=== PATIENT | female | born 1995 | race Caucasian/White ===

== ENCOUNTER → 2016-07-13 | Outpatient (CLI) | payer OTHER ==
[~2016-07-13] MED LIST: FERR1TAB23; PRENTAB26 PO
[2016-07-13 17:38] LABS: URINE APPEARANCE CLEAR (CLEAR); URINE BILIRUBIN NEG (NEG); URINE COLOR YELLOW; URINE NITRITE NEG (NEG); URINE SPECIFIC GRAVITY 1.011 (1.000-1.030); UROBILINOGEN NEG (NEG)
[2016-07-13 17:51] LABS: MANUAL MICROSCOPIC REQUIRED? NO; REVIEW REQ? NO
== END | disposition home or self-care (01) ==
LOC: C.LABSPEC 14:42
PROVIDERS: ATTEND Obstetrics & Gynecology
DX: R30.0 Dysuria (principal); Z33.1 Pregnant state, incidental

== ENCOUNTER → 2016-07-27 | Outpatient (CLI) | payer OTHER ==
[2016-07-27 13:45] LABS: BASO % 0.2 %; BASO ABS # 0.02 K/uL (0-0.2); COMPLETE YES; HEMATOCRIT 30.9 % (37-47); IG% 0.6 %; LYMPH % 22.2 %; LYMPH ABS # 1.92 K/uL (1.2-3.4); MEAN CELL VOLUME 88.8 fL (80-100); MEAN CORPUSCULAR HEMOGLOBIN 29.9 pg (25-34); MEAN CORPUSCULAR HGB CONC 33.7 g/dl (32-36); MEAN PLATELET VOLUME 8.8 fL (7.4-10.4); MONO % 9.2 %; NEUT % 66.8 %; PLATELET COUNT 305 K/uL (130-400); RED BLOOD COUNT 3.48 M/uL (4.2-5.4); WHITE BLOOD COUNT 8.63 K/uL (4.8-10.8)
[2016-07-27 13:51] LABS: URINE APPEARANCE CLEAR (CLEAR); URINE BILIRUBIN NEG (NEG); URINE COLOR YELLOW; URINE EPITHELIAL CELL AUTO >30 /lpf (0-5); URINE NITRITE NEG (NEG); URINE PH 5.5 (4.5-7.5); URINE SPECIFIC GRAVITY 1.005 (1.000-1.030); UROBILINOGEN NEG (NEG)
[2016-07-27 13:58] LABS: MANUAL MICROSCOPIC REQUIRED? NO; REVIEW REQ? NO
[2016-07-29 14:54] LABS: CHLAMYDIA TRACH RNA*** NOT DETECTED (NOT DETECTED); GC (NEIS GONORRHOEAE)RNA** NOT DETECTED (NOT DETECTED)
[2016-08-03 13:14] LABS: RX HIV-1 RNA QUAL Not Detected (Not Detected)
== END | disposition home or self-care (01) ==
LOC: C.LAB1850 11:42
PROVIDERS: ATTEND Obstetrics & Gynecology
DX: Z34.00 Encounter for supervision of normal first pregnancy, unspecified trimester (principal); R30.0 Dysuria

== ENCOUNTER → 2016-08-24 | Outpatient (CLI) | payer OTHER ==
[2016-08-24 14:46] LABS: GTGD 50 Grams
== END | disposition home or self-care (01) ==
LOC: C.LAB1850 11:58
PROVIDERS: ATTEND Obstetrics & Gynecology
DX: Z34.02 Encounter for supervision of normal first pregnancy, second trimester (principal); O28.1 Abnormal biochemical finding on antenatal screening of mother

== ENCOUNTER → 2016-11-18 | Outpatient (CLI) | payer OTHER ==
[2016-11-18 14:19] LABS: HEMATOCRIT 29.5 % (37-47)
[2016-11-18 15:07] LABS: GTGD 50 Grams
[2016-11-18 17:39] LABS: URINE APPEARANCE CLEAR (CLEAR); URINE BILIRUBIN NEG (NEG); URINE COLOR YELLOW; URINE NITRITE NEG (NEG); URINE SPECIFIC GRAVITY 1.015 (1.000-1.030); UROBILINOGEN NEG (NEG)
[2016-11-18 17:40] LABS: MANUAL MICROSCOPIC REQUIRED? NO; REVIEW REQ? NO
== END | disposition home or self-care (01) ==
LOC: C.LAB1850 12:15
PROVIDERS: ATTEND Obstetrics & Gynecology
DX: Z34.03 Encounter for supervision of normal first pregnancy, third trimester (principal)

== ENCOUNTER → 2017-01-07 | Outpatient (CLI) | payer OTHER | END | disposition home or self-care (01) | LOC: C.LABSPEC 17:44 | PROVIDERS: ATTEND Obstetrics & Gynecology | DX: Z34.03 Encounter for supervision of normal first pregnancy, third trimester (principal) ==

== ENCOUNTER 2017-01-26 01:50 | Inpatient (IN) | payer OTHER ==
[~2017-01-26] VITALS: Ht 167.6 cm; Wt 70.0 kg
[2017-01-26] MEDS ORDERED: LACTATED RINGER'S 1000ML 1,000 ML IV PRN (02:43)
[2017-01-26] MEDS ORDERED: LACTATED RINGER'S 1000ML 1,000 ML IV SCH (02:43)
[2017-01-26] MEDS ORDERED: FENTANYL 2MCG/ML ROPIV 1.25MG/ML 100ML BAG EPI ONE (02:52)
[2017-01-26] MEDS ORDERED: FENTANYL CITRATE INJ 50 MCG/1 ML 2 ML VIAL ONE (02:52)
[2017-01-26] MEDS ORDERED: BUPIVACAINE 0.25% 30 ML VIAL ONE (02:52)
[2017-01-26] MEDS ORDERED: EpHEDrine SULFATE INJ 50 MG/ML AMP ONE (02:52)
[2017-01-26 03:11] VITALS: Ht 167.6 cm; Wt 70.0 kg
[2017-01-26] MEDS ORDERED: PRENTAB26 PO (03:15)
[2017-01-26] MEDS ORDERED: FERR1TAB23 (03:15)
[2017-01-26 03:23] LABS: HEMATOCRIT 30.1 % (37-47); MEAN CELL VOLUME 90.7 fL (80-100); MEAN CORPUSCULAR HEMOGLOBIN 29.5 pg (25-34); MEAN CORPUSCULAR HGB CONC 32.6 g/dl (32-36); MEAN PLATELET VOLUME 8.6 fL (7.4-10.4); PLATELET COUNT 144 K/uL (130-400); RED BLOOD COUNT 3.32 M/uL (4.2-5.4); WHITE BLOOD COUNT 12.13 K/uL (4.8-10.8)
[2017-01-26] MEDS ORDERED: LACTATED RINGER'S 1000ML 500 ML IV PRN (04:09)
[2017-01-26] MEDS ORDERED: NALOXONE HCL INJ 1 MG in SODIUM CHLORIDE 0.9% 1000ML 1,000 ML IV PRN ×4 (04:09)
[2017-01-26] MEDS ORDERED: EpHEDrine SULFATE INJ 50 MG/ML AMP IV PRN (04:15)
[2017-01-26] MEDS ORDERED: FENTANYL 2MCG/ML ROPIV 1.25MG/ML 100ML BAG EPI PRN (04:15)
[2017-01-26] MEDS ORDERED: NALBUPHINE HCL INJ 10 MG/ML AMP IV PRN (04:15)
[2017-01-26] MEDS ORDERED: ONDANSETRON INJ 2 MG/ML 2 ML VIAL IV PRN (04:15)
[2017-01-26] MEDS ORDERED: PROMETHAZINE HCL INJ 25 MG in SODIUM CHLORIDE 0.9% 50ML 50 ML IV PRN (04:15)
[2017-01-26] MEDS ORDERED: NALOXONE HCL INJ 0.4 MG/1 ML VIAL/CARP IV PRN (04:15)
[2017-01-26] MEDS ORDERED: DiphenhydrAMINE HCL 50 MG/ML VIAL IV PRN (04:15)
[2017-01-26] MEDS ORDERED: OXYTOCIN 30 UNITS/500ML NSS IV ONE (06:55)
[2017-01-26] MEDS ORDERED: BENZOCAINE 20% AER SPR 82.5 GM CAN EXT PRN (07:00)
[2017-01-26] MEDS ORDERED: ACETAMINOPHEN 325 MG TAB PO PRN (07:00)
[2017-01-26] MEDS ORDERED: LANOLIN OINT EXT PRN ×2 (07:00)
[2017-01-26] MEDS ORDERED: OXYCODONE/ACETAMINOPHEN 5-325 TAB PO PRN (07:00)
[2017-01-26] MEDS ORDERED: ACETAMINOPHEN/CODEINE 300/30MG TAB PO PRN ×2 (07:00)
[2017-01-26] MEDS ORDERED: OXYTOCIN 30 UNITS/500ML NSS IV PRN (07:00)
[2017-01-26] MEDS ORDERED: SUPERCREAM 0.870 % 15GM JAR EXT PRN (07:00)
[2017-01-26] MEDS ORDERED: HYDROCORTISONE ACETATE 25 MG SUPP PR PRN (07:00)
--- NOTE | 2017-01-26 07:17 | DELIVERY SUMMARY ---
DATE OF OPERATION: 01/26/2017 LABOR NOTE Sofía presented in active labor at approximately 6-7 cm early in the morning of January 26, 2017. She had bulging membranes and requested epidural. Group B strep negative uncomplicated . Received an epidural. heart rate tracing was category 1. Progressed to fully dilated and then spontaneously ruptured. She pushed only over a few contractions delivering a baby in right occiput anterior position. There was a tight nuchal cord but the fluid was clear. Mouth and then nares were suctioned. I was able to release the cord over the baby's head and then delivered a live female infant. Initially baby was not vigorous so cord clamped and cut and baby taken to warmer for resuscitation, which it responded to. Cord gases obtained. Cord blood obtained. Placenta removed with gentle traction. Second degree tear repaired with 3-0 Vicryl. Sponge and instrument counts correct. Estimated blood loss 200 mL. Rectal exam negative for stitches or defects and oxytocin was also started after delivery of placenta. I attest to the content of the Intraoperative Record and any orders documented therein. Any exceptions are noted below. JAYRO
--- NOTE | 2017-01-26 09:24 | Anesthesia Procedure Note ---
Anesthesia Epidural Removal Nt Date & Time Jan 26, 2017 at 09:24 Vital Signs Pain Intensity: 0.0 Notes Mental Status: alert / awake / arousable, participated in evaluation Nausea / Vomiting: adequately controlled Pain: adequately controlled Airway Patency, RR, SpO2: stable & adequate BP & HR: stable & adequate Hydration State: stable & adequate Neuraxial Anesthesia: was administered Anesthetic Complications: no major complications apparent, pt satisfied with anesthetic care Epidural: removed without complications, with tip intact
[2017-01-26 09:40] VITALS: BP 111/71; PULSE 87; TEMP 37; O2SAT 98
[2017-01-26] MEDS: PRENATAL VITAMIN TAB PO SCH (10:07)
[2017-01-26] MEDS: DOCUSATE SODIUM 100 MG CAP PO SCH ×2 (10:07→20:48)
[2017-01-26 12:12] VITALS: BP 104/67; PULSE 97; TEMP 36.7; O2SAT 98
[2017-01-26 15:42] VITALS: BP_SYST 101; BP_SYST 126; BP_DIAS 64; BP_DIAS 80; PULSE 85; PULSE 86; TEMP 36.6; TEMP 36.8
[2017-01-26] MEDS: IBUPROFEN 600 MG TAB PO PRN ×2 (17:18→21:24)
[2017-01-26 20:50] VITALS: BP 116/68; PULSE 87; TEMP 36.8; O2SAT 100
[2017-01-27 00:15] VITALS: BP 102/59; PULSE 76; TEMP 36.9; O2SAT 100
[2017-01-27] MEDS: IBUPROFEN 600 MG TAB PO PRN ×2 (01:23→12:52)
[2017-01-27 03:20] VITALS: BP 109/66; PULSE 73; TEMP 36.9; O2SAT 99
--- NOTE | 2017-01-27 06:51 | OB/GYN Progress Note ---
FINANCIAL SERVICES CONSULTANT Progress Note Date of Service Jan 27, 2017. Subjective conversation w/ patient, physical exam, chart review, lab review Ambulation: ambulating normally Voiding: no voiding problems Passing Gas: Yes Diet Tolerance: Regular Diet Lochia: Small Feeding Type: Breast Feeding Pain: Low abd cramping with breast feeding Review of Systems Constitutional: No fever, No chills Respiratory: No cough, No shortness of breath Cardiac: No chest pain Abdomen: No nausea, No vomiting, No diarrhea Female : No dysuria Objective Vital Signs Date Time Temp Pulse Resp B/P (MAP) Pulse Ox O2 Delivery O2 Flow Rate FiO2 01/27/17 03:20 36.9 73 18 109/66 (80) 99 01/27/17 00:15 36.9 76 18 102/59 (73) 100 Room Air 01/27/17 00:15 100 Room Air 01/26/17 20:50 36.8 87 18 116/68 (84) 100 Room Air 01/26/17 16:00 Room Air 01/26/17 15:42 36.8 85 16 101/64 (76) Room Air 01/26/17 12:12 36.7 97 16 104/67 (79) 98 Room Air 01/26/17 09:40 37.0 87 16 111/71 (84) 98 Room Air Physical Exam General Appearance: WELL-APPEARING, WD/WN Respiratory/Chest: lungs clear, normal breath sounds Cardiovascular: regular rate, rhythm Abdomen: normal bowel sounds, non tender, soft Fundus: Firm, Non-Tender, Relation to Umbilicus (at umbilicus) Extremities: normal range of motion, non-tender, no pedal edema, no calf tenderness Laboratory Results Last 24 Hours Test 01/27/17 06:23 Assessment and Plan Post- Day Number: 1 Continue Routine Care: Resident Physician Supervision Note: I was present with Dr. Newsome during the history and exam. I discussed the case with the resident and agree with the findings and plan as documented in the note. Any exceptions or clarifications are listed here: [None] Documented By: Tash Cabrera 21yo s/p , now PPD #1. - Pts blood type O negative. Babys blood type O positive. GBS negative. Rubella immune. - Vital signs reviewed and stable. - Pain controlled with motrin. - No leg swelling or tenderness on calf palpation. Encourage ambulation. - Encourage breast feeding. - Hemoglobin pre-delivery 9.8, post-delivery pending this am. Bleeding has improved. Continue to monitor clinically. - Continue routine post-vaginal delivery care. - Pt agreed with above plan, all current questions answered. Calixto Newsome MD, PGY1 Waiter Waitress Tracking Resident Involvement: Resident Care Provided Care Provided: OB Delivery (morning rounds)
[2017-01-27 07:04] LABS: HEMATOCRIT 27.1 % (37-47)
[2017-01-27 07:22] VITALS: BP 103/64; PULSE 80; TEMP 36.4; O2SAT 99
[2017-01-27] MEDS: PRENATAL VITAMIN TAB PO SCH (09:01)
[2017-01-27] MEDS: DOCUSATE SODIUM 100 MG CAP PO SCH ×2 (09:01→20:11)
[2017-01-27 15:12] VITALS: BP 98/61; PULSE 96; TEMP 36.8; O2SAT 99
[2017-01-27] MEDS ORDERED: BISACODYL 5 MG TABEC PO SCH (20:00)
[2017-01-27 23:25] VITALS: BP 108/66; PULSE 96; TEMP 36.7
--- NOTE | 2017-01-28 06:53 | OB/GYN Progress Note ---
CONTACT CLERK Progress Note Date of Service Jan 28, 2017. Subjective conversation w/ patient, physical exam, chart review, lab review Ambulation: ambulating normally Voiding: no voiding problems Passing Gas: Yes Diet Tolerance: Regular Diet Lochia: Small Feeding Type: Breast Feeding Pain: Says some mild low abd cramping Review of Systems Constitutional: No fever, No chills Respiratory: No cough, No shortness of breath Cardiac: No chest pain Abdomen: No nausea, No vomiting, No diarrhea Female : No dysuria Objective Vital Signs Date Time Temp Pulse Resp B/P (MAP) Pulse Ox O2 Delivery O2 Flow Rate FiO2 01/27/17 23:25 36.7 96 18 108/66 (80) Room Air 01/27/17 23:25 Room Air 01/27/17 16:14 Room Air 01/27/17 15:12 36.8 96 20 98/61 (73) 99 Room Air 01/27/17 09:00 Room Air 01/27/17 07:22 36.4 80 16 103/64 (77) 99 Room Air Physical Exam General Appearance: WELL-APPEARING, WD/WN, NO APPARENT DISTRESS Respiratory/Chest: lungs clear, normal breath sounds Cardiovascular: regular rate, rhythm Abdomen: normal bowel sounds, non tender, soft Fundus: Firm, Non-Tender, Relation to Umbilicus (approx two down) Extremities: normal range of motion, non-tender, no pedal edema, no calf tenderness Assessment and Plan Post- Day Number: 2 Continue Routine Care: 21yo s/p , now PPD #2. - Pts blood type O negative. Babys blood type O positive. RhoGAM given 27Jul. GBS negative. Rubella immune. - Vital signs reviewed and stable. - Pain controlled with motrin. - No leg swelling or tenderness on calf palpation. Encourage ambulation. - Encourage breast feeding. - Hemoglobin pre-delivery 9.8, post-delivery 8.8. Continue to monitor clinically. - Continue routine post-vaginal delivery care. - Pt agreed with above plan, all current questions answered. Calixto Newsome MD, PGY1 Logging Rafter Laborer Physician Supervision Note: I interviewed and examined the patient. Discussed with Dr. Newsome and agree with findings and plan as documented in the note. Any exceptions or clarifications are listed here: D/C instructions given, f/u in 6 weeks Documented By: Ernesto Rashid Resident Tracking Resident Involvement: Resident Care Provided Care Provided: OB Delivery (morning rounds)
[2017-01-28] MEDS ORDERED: BISACODYL 10 MG SUPP PR PRN (07:00)
--- NOTE | 2017-01-28 07:15 | Discharge Instructions ---
Discharge Instructions Date of Service Jan 28, 2017. Admission Reason for Admission: LABOR Discharge Discharge Diagnosis / Problem: recovery from vaginal delivery Discharge Goals Goal(s): Routine recovery after delivery Medications Continue Dispensed Medications: supercream, tucks, lansinoh Activity Recommendations Activity Limitations: per Instructions/Follow-up section . Instructions / Follow-Up Instructions / Follow-Up ACTIVITY RECOMMENDATIONS: * Gradual return to full activity over the next 2-3 weeks. * No lifting - nothing heavier than baby over the next 2-3 weeks. * Do not engage in vigorous exercise, sexual activity or sports until cleared by your physician. * Do not drive or operate any motorized equipment until cleared by your physician. * You may shower/bathe daily. MEDICATIONS: For discomfort or pain, you may use Acetaminophen (Tylenol), Ibuprofen (Advil), or Naproxen (Aleve) following the package directions. For constipation you may use Colace following the package directions. BREAST CARE: If you are not breast feeding: * Wear a supportive bra 24 hours a day for one to two weeks. * Avoid stimulating your breasts and nipples as much as possible during the first few weeks after delivery. * When taking a shower, have the warm water hit your back, not breasts. * When your breasts feel full, apply ice packs. Usually three to four times a day helps ease the discomfort. * Take a mild pain medication (Tylenol / Motrin) when you are uncomfortable. If breast feeding: * Use breast milk to lubricate nipples. Lansinoh cream may be used for sore nipples. You do not need to remove cream prior to breast feeding. If using a different brand of cream, check the label for directions regarding removal of cream prior to nursing. * Wear a supportive bra. * If having problems with breasts or breast feeding, call a labor relations consultant or your health care provider. EPISIOTOMY CARE: After delivery, if you have an episiotomy (stitches), the following steps will ease discomfort and aid healing. * For the first 24 hours after delivery, place ice packs next to your episiotomy to help reduce swelling. * After the first 24 hour-period, sitz baths, either portable or in the tub, are suggested. A shower with a shower arm sprayed over the episiotomy may be comforting. * [place] care should be done after each voiding and bowel movement. Squirt warm water from a plastic bottle over the perineum (region of the body between the anus and urinary opening) and pat dry. * Use Dermoplast to ease discomfort. Shake container. [place] directly over the episiotomy. Place a Tucks on a clean sanitary pad next to your episiotomy. SPECIAL CARE INSTRUCTIONS: When you are discharged from the hospital, it is important for you to follow the instructions listed below: * During the first week at home, you should be able to care for yourself and your baby. In addition, the usual light household activities are encouraged. * Limit your activities to the way you feel. Do not try to clean the house or move furniture. Be sensible. * If you actively engage in sports and have done so up until the time of your delivery, you may resume these activities as soon as you feel able. This may take up to one month or even longer. Use good judgment. * Continue to take your vitamins for at least six weeks after the of your baby. * Your diet need not be limited unless you were on a special diet before your delivery. Breast-feeding mothers need around 2500 calories per day and at least 64-80 ounces of fluid per day (8 to 10 glasses). * You should eat foods from the four major food groups. Crash diets or fad diets are to be avoided. Eating lean meats, fresh fruits and vegetables, low-fat dairy products, high fiber foods and a regular exercise program, will help you get back to your pre- weight without putting your health at risk. * Constipation is sometimes a problem after delivery. Take a mild laxative as needed. If breast feeding, Milk of Magnesia is acceptable to use. You may use a suppository or Fleets enema if no episiotomy. * A daily shower or tub bath is suggested. Be sure to thoroughly and gently dry the perineum. * A bloody vaginal discharge will usually continue until around four weeks post . A small amount of bleeding may continue for as long as six weeks. Vaginal discharge changes from the bright red bleeding after delivery to pink then brownish and finally yellowish-pink before becoming white and disappearing. * Bleeding may increase with activity. Your first period may come in 4-8 weeks. If you are breast feeding, your period may be delayed even longer. * [place] (sex) can begin whenever both you and your partner feel comfortable and do not have any form of genital infection. It is recommended that you wait at least six weeks for internal and external healing to occur. If you have questions, please talk to your health care practitioner. A condom should be used to prevent infection and . * Foreplay, gentle intercourse and lubrication is very important the first several times to prevent pain. A water-based lubricant such as K-Y jelly or Astroglide may be used. * If you have RH negative blood and your baby is RH positive, you will receive RHOGAM by injection prior to discharge. The nurse will give you a card to keep with you that has the date and place that you received RHOGAM after delivery. * During your care, you had a Rubella screen done to check for the presence of rubella antibodies in your blood. If your test was negative, you will receive a Rubella vaccine prior to discharge. This vaccine may cause a fever, soreness at the injection site and flu-like symptoms. If these symptoms persist, notify your health care practitioner. is not advised for one month after a Rubella vaccine. * Verbalizes understanding of car seat law as reviewed with patient nursing. * Car Seat hand-out given and reviewed with patient by nursing. * Shaken baby information reviewed with patient by nursing. Call you doctor if: * Heavy bleeding (saturating several pads an hour) or passing clots the size of your fist. * A fever >101 degrees F (38.3 degrees C) on two occasions four hours apart and /or chills. * Unusual pain in the pelvic or vaginal areas. * "Baby Blues" lasting longer than two weeks. If you have any questions or concerns, call your health care practitioner at . FOLLOW UP VISIT: * Please call the office at to schedule a 6 week examination. It is important you keep this appointment. It is important for you to make arrangements for either yearly or twice yearly check-ups thereafter. Current Hospital Diet Patient's current hospital diet: Regular OB Diet Discharge Diet Recommended Diet: Regular OB Diet Pending Studies Studies pending at discharge: no Medical Emergencies . Who to Call and When: Medical Emergencies: If at any time you feel your situation is an emergency, please call 911 immediately. . Non-Emergent Contact Non-Emergency issues call your: [employer] . . "Provider Documentation" section prepared by Calixto Newsome. . VTE Core Measure Inpt VTE Proph given/why not?: Treatment not indicated
[2017-01-28] MEDS: IBUPROFEN 600 MG TAB PO PRN (08:25)
[2017-01-28] MEDS: PRENATAL VITAMIN TAB PO SCH (08:25)
[2017-01-28] MEDS: DOCUSATE SODIUM 100 MG CAP PO SCH (08:26)
[2017-01-28 08:30] VITALS: BP 102/67; PULSE 77; TEMP 36.5; O2SAT 95
[2017-01-28 13:30] VITALS: BP_DIAS 67; PULSE 77; TEMP 36.5
== END 2017-01-28 13:30 | disposition home or self-care (01) | DRG 775 ==
LOC: C.OPB 01:50 → C.LD 01:54 → C.OPB 02:47 → C.OBG 09:43
PROVIDERS: ADMIT Obstetrics & Gynecology; ATTEND Obstetrics & Gynecology
PROC: 10E0XZZ Delivery of Products of Conception, External Approach (ICD-10-PCS; principal; 2017-01-26)
PROC: 0KQM0ZZ Repair Perineum Muscle, Open Approach (ICD-10-PCS; principal; 2017-01-26)
DX: O99.02 Anemia complicating childbirth (principal); D64.9 Anemia, unspecified; O69.1XX0 Labor and delivery complicated by cord around neck, with compression, not applicable or unspecified; O70.1 Second degree perineal laceration during delivery; Z3A.38 38 weeks gestation of pregnancy; Z37.0 Single live birth

== ENCOUNTER → 2017-07-06 | Outpatient (CLI) | payer OTHER | END | disposition home or self-care (01) | LOC: C.LAB 15:41 | PROVIDERS: ATTEND Obstetrics & Gynecology | DX: L65.9 Nonscarring hair loss, unspecified (principal) ==